=== PATIENT | male | born 1955 | race Caucasian/White ===

== ENCOUNTER → 2018-09-08 | Outpatient (CLI) | payer OTHER ==
--- NOTE | 2018-09-08 16:36 | CT ---
EXAM DESCRIPTION: Chest w/o Contrast : Computed Tomography. CLINICAL HISTORY: 62 years Male COPD COMPARISON: None. TECHNIQUE: Spiral-axial scans at 5 x 5 mm intervals through the lungs and thorax without IV contrast. 2.5 x 5 mm lung algorithm axial reconstructions. Coronal and sagittal 2.0 Mm reconstructions. Total Exam DLP: 493.4 mGy-cm. This exam was performed according to our departmental dose-optimization program which includes automated exposure control, adjustment of the mA and/or kV according to patient size and/or use of iterative reconstruction technique; to reduce radiation dose to as low as reasonably achievable (ALARA). Nodule measurements under 10 mm are given as mean value of 3 axes diameters. FINDINGS: Lungs and large airways: 7 mm oblong solid subpleural nodule medial left lung apex with small pleural extension on image series 4/30. No other abnormal nodules. No masses. No focal infiltrates. Pleural parenchymal scarring inferior right middle lobe and lateral right upper lobe inferiorly. Pleural spaces: Bilateral apical pleural thickening with additional irregular pleural thickening on the medial aspect of the left upper lobe just above the level of the aortic arch, images [id number]. No effusion bilaterally or pneumothorax. Other smaller regions of pleural thickening bilaterally. Mediastinum and Ashley: Evaluation limited due to lack of IV contrast. Nose and not enlarged. No dominant soft tissue mass. Great vessels and Heart: Evaluation limited due to lack of IV contrast.. No significant calcification. . Soft tissues of neck base, axillae, and chest wall: Evaluation limited due to lack of IV contrast.. Some of the left axillary nodes demonstrate non-circumscribed margins of, difficult to separate from the subclavian-axillary artery and veins. Upper abdomen: Included peritoneal space is negative. Spleen and adrenal glands normal density. Stomach distended by food. Gallbladder partially visualized. Osseous structures: Thoracic scoliosis and spondylosis. Left sternoclavicular arthrosis. No lytic or blastic lesions. IMPRESSION: 1. 7 mm oblong solid nodule left medial upper lobe apex. Focal irregular apical pleural thickening slightly more inferior. Recommend a non-contrast Chest CT at 6-12 months, then consider an additional non-contrast Chest CT at 18-24 months. These guidelines do not apply to patients younger than 35 years, immunocompromised patients, and patients with cancer. Follow up in patients with significant comorbidities as clinically warranted. For lung cancer screening, adhere to Lung-RADS guidelines. Reference: Radiology. 2017; 284(1):228-43. 2. Possible left axillary lymph node enlargement. Correlate with physical findings, consider follow-up duplex ultrasound imaging . Electronically signed by: Santy Meng MD 09/08/2018 4:34 PM CDT
== END ==
LOC: CT 12:15
PROVIDERS: ATTEND Nurse Practitioner Acute Care
DX: M25.50 Pain in unspecified joint (principal); R53.83 Other fatigue; J44.9 Chronic obstructive pulmonary disease, unspecified

== ENCOUNTER → 2019-10-19 | Outpatient (CLI) | payer OTHER ==
--- NOTE | 2019-10-20 10:33 | CT ---
Study: CT Chest. Indication: LUNG NODULE Technique: CT imaging of the chest obtained without intravenous administration of contrast. This exam was performed according to our departmental dose-optimization program, which includes automated exposure control, adjustment of the mA and/or kV according to patient size and/or use of iterative reconstruction technique. Comparison: September 08, 2018 Impression: Atherosclerosis great vessels. Heart size normal. No pathologically enlarged lymphadenopathy. Degenerative changes of the spine noted. Biapical pleural parenchymal scarring redemonstrated. Mild scarring of the medial aspects of the right middle lobe noted as well. No consolidation, pleural effusion, or pneumothorax. At the left lung apex is a stable 7 mm noncalcified pulmonary nodule. Impression: Stable left apical pulmonary nodule. Follow-up CT chest in 18-24 months recommended. Additional stable findings above. Electronically signed by: Ian Mixon MD 10/20/2019 10:31 AM CDT
== END ==
LOC: CT 13:53
PROVIDERS: ATTEND Internal Medicine
DX: J98.4 Other disorders of lung (principal); R91.8 Other nonspecific abnormal finding of lung field; R91.1 Solitary pulmonary nodule

== ENCOUNTER → 2020-04-15 | Outpatient (CLI) | payer OTHER ==
--- NOTE | 2020-04-18 09:21 | US ---
EXAM DESCRIPTION: Abdomen,Limited: ULTRASOUND. CLINICAL HISTORY: 64 years Male Epidermal cyst. Multiple. Chronic. Palpable. COMPARISON: None Available. TECHNIQUE: Transcutaneous scanning: Inman-scale and Doppler modes. FINDINGS: First lump measures 10.4 x 6.2 mm. Homogeneous echogenic wider than tall orientation in the subcutaneous fat. Second measures 10.8 x 6.8 mm and not vascular. Similar appearance and morphology as first lump. Third lump measures 8.7 x 5.9 x 6.2 mm. Nonvascular. Same appearance in similar location as the previous lumps. No dominant solid mass, no distinct cyst, no fluid collection, no large calcifications. IMPRESSION: 3 subcutaneous homogeneous echogenic masses approximately 1 cm in longest diameter. Consistent with the clinical history. Electronically signed by: Santy Meng MD 04/18/2020 9:20 AM [facility]
== END ==
LOC: US 13:58
PROVIDERS: ATTEND General Practice
DX: L72.0 Epidermal cyst (principal)